=== PATIENT | female | born 1995 | race African-American/Black ===

== ENCOUNTER 2022-02-02 15:57 | Emergency (ER) | payer OTHER ==
[~2022-02-02] VITALS: Ht 167.6 cm; Wt 93.0 kg
[2022-02-02] MEDS ORDERED: ACETAMINOPHEN 500 MG TAB PO ONE (17:00)
[2022-02-02 17:02] VITALS: BP 161/83
[2022-02-02] MEDS ORDERED: ACET-1080 PO (17:37)
[2022-02-02] MEDS ORDERED: METH750T22 PO (17:37)
== END 2022-02-02 17:50 | disposition home or self-care (01) ==
LOC: ER 15:57 → EDBD 15:57 → ER 17:50
DX: S39.011A Strain of muscle, fascia and tendon of abdomen, initial encounter (principal); S40.022A Contusion of left upper arm, initial encounter; V49.49XA Driver injured in collision with other motor vehicles in traffic accident, initial encounter; Y93.89 Activity, other specified; Y92.410 Unspecified street and highway as the place of occurrence of the external cause; Y99.8 Other external cause status